=== PATIENT | female | born 1950 ===

== ENCOUNTER 2016-08-23 12:04 | Emergency (ER) | payer MEDICARE ==
[2016-08-23 12:51] VITALS: TEMP 97.8; O2SAT 98
--- NOTE | 2016-08-23 13:38 | ED PDOC ---
Arrival/HPI - General Chief Complaint: Back Pain Time Seen by Provider: 08/23/16 13:03 Historian: Patient - History of Present Illness Narrative History of Present Illness (Text): 08/23/16 13:34 Patient reports pain to the right posterior ribs which started 2 days ago, states 1 week ago she fell off of her bed and landed on the right side of her body, states at that time the pain was mild however for the past 2 days the pain has been more intense prompting ER visit. Admits that the pain is worse when she sneezes, coughs and with movement. She has been taking over-the- counter Advil and Tylenol as needed for pain with mild improvement. Otherwise: ( -) radiation, (-) chest pain, (-) dyspnea, (-) shortness of breath, (-) abdominal pain, (-) neck pain, (-) back pain, (-) head injury, (-) other complaints, (-) other injury. Past Medical History - Provider Review Nursing Documentation Reviewed: Yes - Infectious Disease Hx of Infectious Diseases: None - Psychiatric Hx Substance Use: No - Anesthesia Hx Anesthesia: No Hx Anesthesia Reactions: No Hx Malignant Hyperthermia: No Family/Social History - Physician Review Nursing Documentation Reviewed: Yes Family/Social History: No Known Family HX Smoking Status: Never Smoked Hx Alcohol Use: No Hx Substance Use: No Allergies/Home Meds Allergies/Adverse Reactions: Allergies No Known Allergies Allergy (Verified 08/23/16 12:51) Home Medications: Home Meds Medication Instructions Recorded Confirmed Glipizide [Glipizide ER] 2.5 mg PO DAILY 08/23/16 08/23/16 Losartan [Cozaar] 08/23/16 Simvastatin [Zocor] 08/23/16 metFORMIN [glucOPHAGE] 500 mg 08/23/16 Review of Systems - Review of Systems Constitutional: Normal. absent: Fatigue, Weight Change, Fevers Respiratory: Normal. absent: SOB, Cough, Sputum Cardiovascular: Normal. absent: Chest Pain, Palpitations Gastrointestinal: Normal. absent: Abdominal Pain, Stool Changes Musculoskeletal: Normal, Back Pain. absent: Arthralgias, Neck Pain Skin: Normal, Rash (2 week h/o red itchy rash to the R lower lateral leg, using otc steroid cream with no relief. ). absent: Pruritis, Skin Lesions Neurological: Normal. absent: Headache, Dizziness, Focal Weakness Physical Exam - Physical Exam Narrative Physical Exam (Text): 08/23/16 13:37 GENERAL APPEARANCE: Patient is awake, alert, oriented x 3, in no acute distress. SKIN: Warm, dry; (-) cyanosis. EYES: (-) conjunctival pallor. ENMT: Mucous membranes moist. NECK: (-) tenderness, (-) stiffness, (-) lymphadenopathy, (-) JVD. CHEST AND RESPIRATORY: (-) rash, (+) tenderness to the right posterior ribs, (- ) step-off, (-) ecchymosis, (-) swelling. Lungs: (-) rales, (-) rhonchi, (-) wheezes, (-) rub; breath sounds equal bilaterally. HEART AND CARDIOVASCULAR: (-) irregularity; (-) murmur, (-) gallop, (-) rub. ABDOMEN AND GI: Soft; (-) distention, (-) tenderness, (-) palpable pulsatile mass. BACK: (-) tenderness. EXTREMITIES: (-) deformity; (-) edema, (-) calf tenderness. (+) distal pulses. NEURO AND PSYCH: Mental status as above. Cranial nerves grossly intact; strength symmetric. Vital Signs Temp Pulse Resp BP Pulse Ox 08/23/16 12:46 97.8 F 76 20 126/77 98 Medical Decision Making ED Course and Treatment: 08/23/16 13:38 66 yo F complaining of right posterior rib pain, after sustaining a fall 1 week ago. X-ray of the right ribs ordered, patient given Tylenol for pain. X-ray right ribs: No fracture, no pneumothorax as read by [facility] and confirmed by the radiologist. Patient advised that official radiology read of XR is still pending and will call the patient if there is any discrepancy within 24 hours. X-ray results discussed with the patient in great detail. Based on history, exam and diagnostic results plan will be for outpatient follow -up with PMD. Patient states she fully agrees with and understands discharge instructions. States that she agrees with the plan and disposition. Verbalized and repeated discharge instructions and plan. I have given the patient opportunity to ask any additional questions. Follow up with primary care physician in 1-2 days without fail. Advised to take medication as prescribed. Return to the emergency room at any time for any new or worsening symptoms. - RAD Interpretation Radiology Orders: 08/23/16 13:08 RIBS RIGHT [RAD] Stat - Medication Orders Current Medication Orders: Discontinued Medications Acetaminophen (Tylenol 325mg Tab) 975 mg PO STAT STA Stop: 08/23/16 13:09 Last Admin: 08/23/16 13:55 Dose: 975 mg - PA / [employer] / Resident Statement / has reviewed & agrees with the documentation as recorded. Disposition/Present on Arrival - Present on Arrival Any Indicators Present on Arrival: No History of DVT/PE: No History of Uncontrolled Diabetes: No Urinary Catheter: No History of Decub. Ulcer: No History Surgical Site Infection Following: None - Disposition Have Diagnosis and Disposition been Completed?: Yes Diagnosis: Contusion of rib on right side, Contact dermatitis Disposition: HOME/ ROUTINE Disposition Time: 14:25 Patient Plan: Discharge Condition: GOOD Discharge Instructions (ExitCare): Rib Contusion (ED), Contact Dermatitis (ED) Print Language: CAMEROONIAN Additional Instructions: Thank you for letting us take care of you today. You were treated for rib contusion, contact dermatitis. The emergency medical care you received today was directed at your acute symptoms. If you were prescribed any medication, please fill it and take as directed. It may take several days for your symptoms to resolve. Return to the Emergency Department if your symptoms worsen, do not improve, or if you have any other problems. Please contact your doctor in 2 days for re-evaluation and follow up. Bring any paperwork you were given at discharge with you along with any medications you are taking to your follow up visit. Our treatment cannot replace ongoing medical care by a primary care provider (PCP) outside of the emergency department. Thank you for allowing the [facility] team to be part of your care today. Prescriptions: Hydrocortisone Joselyn 0.2% Cr [Westcort] 1 ea TP BID #[id number] Referrals: Eva Lang DO [Primary Care Provider] - Follow up with primary
--- NOTE | 2016-08-23 13:54 | RAD ---
PROCEDURE: Right ribs HISTORY: trauma COMPARISON: TECHNIQUE: Four views FINDINGS: Four views of the right ribcage IMPRESSION: Negative study
[2016-08-23 14:44] VITALS: BP 122/78; PULSE 97; RESP 18
== END 2016-08-23 14:46 | disposition home or self-care (01) ==
LOC: ED 12:04
DX: S20.211A Contusion of right front wall of thorax, initial encounter (principal); W06.XXXA Fall from bed, initial encounter; Y92.003 Bedroom of unspecified non-institutional (private) residence as the place of occurrence of the external cause; L25.9 Unspecified contact dermatitis, unspecified cause